=== PATIENT | female | born 1995 | race Caucasian/White ===

== ENCOUNTER 2017-05-14 05:24 | Emergency (ER) | payer SELFPAY ==
[2017-05-14 06:18] VITALS: BP 104/63
[2017-05-14 07:50] LABS: Bacteria,Urine 2+ /HPF (Negative); Bilirubin,Urine NEG (Negative); Blood,Urine LG (Negative); Calcium Oxalate Crystals,Urine 3+; Color,Urine Yellow (Yellow); Mucus,Urine FEW /HPF; Nitrite,Urine NEG (Negative); Urobilinogen,Urine < 2.0 mg/dL (<2.0)
[2017-05-14 07:57] LABS: RBC,Urine > 182.0 /HPF (0.0-6.0); WBC,Urine > 182.0 /HPF (0.0-6.0)
== END 2017-05-14 12:25 | disposition left against medical advice (07) ==
LOC: ED 05:24
DX: R39.9 Unspecified symptoms and signs involving the genitourinary system (principal); Z53.21 Procedure and treatment not carried out due to patient leaving prior to being seen by health care provider
CPT/HCPCS: 81001

== ENCOUNTER 2018-06-11 15:36 | Inpatient (IN) | payer OTHER ==
[2018-06-11] MEDS ORDERED: LACTATED RINGERS 1,000 ML ONE (16:35)
[2018-06-11] MEDS ORDERED: MINERAL OIL PO PRN (16:47)
[2018-06-11] MEDS ORDERED: BRETHINE SUB-Q PRN (16:47)
[2018-06-11] MEDS ORDERED: STADOL IV PRN (16:47)
[2018-06-11] MEDS ORDERED: BRETHINE IVP PRN (16:47)
--- NOTE | 2018-06-11 16:47 | History and Physical Report ---
History of Present Illness Date of examination: 06/11/18 Date of admission: 06/11/18 15:36 Chief complaint: Leaking fluid, contractions History of present illness: 22yo G 1 P 0 0 0 0 at 38 weeks 3 days here with c/o leaking fluid since 13:58 and UCs since 14:30. She reports positive FMs. She is a [facility] patient. records are available and reviewed. Her course has been unremarkable. She reports anemia and currently on iron therapy. Labs: O pos, Antibody Screen neg, RI, HIV NR, RPR NR, Hep C NR, HBsAg NR, GC/CT/TRICH neg Past History Past Medical History: no pertinent history Past Surgical History: no surgical history Family/Genetic History: none Social history: single, lives with family, full code. denies: smoking, alcohol abuse, prescription drug abuse, IV drug use - Obstetrical History Expected Date of Delivery: 06/22/18 Actual Gestation: 38 Week(s) 3 Day(s) : 1 Para: 0 Hx # Term Pregnancies: 0 Number of Pregnancies: 0 Spontaneous Abortions: 0 Induced : 0 Number of Living Children: 0 Medications and Allergies Allergies Allergy/AdvReac Type Severity Reaction Status Date / Time Penicillins Allergy Rash Verified 06/11/18 16:00 Home Medications Medication Instructions Recorded Confirmed Last Taken Type No Known Home Medications [No 07/11/13 07/11/13 Unknown History Reported Home Medications] Review of Systems All systems: negative - Vital Signs Vital signs: Vital Signs Temp Resp 98.7 F 18 06/11/18 16:00 06/11/18 16:00 Temp Pulse Resp BP Pulse Ox 98.7 F 18 06/11/18 16:00 06/11/18 16:00 - Obstetrical FHR: category 2 FHR comments: baseline 150, moderate variability, + accels, variable decel Uterine Contraction Monitor Mode: External Cervical Dilatation: 1.5 (per RN) Cervical Effacement Percentage: 60 (per RN) station: -3 (per RN) Uterine Contraction Pattern: Regular Results All other labs normal. Assessment and Plan - Patient Problems (1) 38 weeks gestation of Current Visit: Yes Status: Acute (2) Spontaneous rupture of amniotic membranes Current Visit: Yes Status: Acute Plan to address problem: Admit to L&D with routine labor orders Start low-dose Pitocin for cervical ripening Anticipate vaginal delivery (3) GBS (group B Streptococcus carrier), +RV culture, currently Current Visit: Yes Status: Acute Plan to address problem: Start Clindamycin per protocol
[2018-06-11] MEDS ORDERED: PITOCin/NS 30 UNIT/500ML 30 UNITS/500 ML BAG IV SCH (17:00)
[2018-06-11] MEDS ORDERED: PITOCin/NS 20 UNIT/1000ML DRIP 20 UNITS/1,000 ML BAG IV SCH (17:00)
[2018-06-11 17:38] LABS: Hematocrit 52.2 % (30.3-42.9); Hemoglobin 17.6 gm/dl (10.1-14.3); Mean Corpuscular HGB Conc 34 % (30-34); Mean Corpuscular Volume 92 fl (79-97); Red Blood Count 5.66 M/mm3 (3.65-5.03); Red Cell Distribution Width 14.1 % (13.2-15.2)
[2018-06-11] MEDS ORDERED: CLEOCIN 900 MG/50 mL 900 MG/50 ML BAG IV SCH (18:00)
[2018-06-11] MEDS ORDERED: XYLOCAINE 2% INFILTRATI ONE (18:00)
[2018-06-11 18:03] LABS: Platelet Count 152 K/mm3 (140-440)
[2018-06-11] MEDS: SUBLIMAZE IV PRN ×2 (18:37→20:52)
[2018-06-11] MEDS ORDERED: NARCAN 2 MG/2 ML IV PRN (19:10)
--- NOTE | 2018-06-11 19:48 | Ultrasound Report ---
PROCEDURE: US OB LIMITED HISTORY: presentation and location of placenta FINDINGS: Real-time ultrasound of the pelvis was performed with attention to the gravid uterus. There is an ant erior grade 1 placenta. cardiac activity is present at 150 bpm. The fetus lies in cephalic lie. IMPRESSION: The fetus lies in cephalic lie Anterior placenta This document is electronically signed by Lorenzo Cruz MD., June 11 2018 07:45:13 PM ET
[2018-06-11] MEDS ORDERED: VANCOMYCIN/NS 1 GM/250 ML 1 GM/250 ML BAG IV SCH (20:00)
[2018-06-11] MEDS ORDERED: fentaNYL-BUPIV 2 MCG/ML-0.125% 200 MCG/100 ML BAG EPIDURAL SCH (20:00)
--- NOTE | 2018-06-11 20:58 | Anesthesia Day of Surgery ---
Anesthesia Day of Surgery - Day of Surgery Patient Examined: Yes Patient H&P Reviewed: Yes Patient is NPO: Yes Beta Blockers: No Cardiac Clearance: No Pulmonary Clearance: No Yariel's Test: N/A
--- NOTE | 2018-06-11 20:58 | Anesthesia Consultation ---
Anesthesia Consult and Med Hx - Airway Anesthetic Teeth Evaluation: Good ROM Head & Neck: Adequate Mental/Hyoid Distance: Adequate Mallampati Class: Class II Intubation Access Assessment: Good - Pulmonary Exam CTA: Yes - Cardiac Exam Cardiac Exam: RRR - Pre-Operative Health Status ASA Pre-Surgery Classification: ASA2 Proposed Anesthetic Plan: Epidural - Pulmonary Hx Smoking: No Hx Asthma: No Hx Respiratory Symptoms: No SOB: No COPD: No Home Oxygen Therapy: No Hx Pneumonia: No Hx Sleep Apnea: No - Cardiovascular System Hx Hypertension: No Hx Coronary Artery Disease: No Hx Heart Attack/AMI: No Hx Angina: No Hx Percutaneous Transluminal Coronary Angioplasty (PTCA): No Hx Cardia Arrhythmia: No Hx Pacemaker: No Hx Internal Defibrillator: No Hx Valvular Heart Disease: No Hx Heart Murmur: No Hx Peripheral Vascular Disease: No - Central Nervous System Hx Neuromuscular Disorder: No Hx Seizures: No CVA: No Hx Back Pain: No Hx Psychiatric Problems: No - Gastrointestinal Hx Ulcer: No Hx Gastroesophageal Reflux Disease: No - Endocrine Hx Renal Disease: No Hx End Stage Renal Disease: No Hx Cirrhosis: No Hx Liver Disease: No Hx Insulin Dependent Diabetes: No Hx Non-Insulin Dependent Diabetes: No Hx Thyroid Disease: No Hx Hypothyroidism: No Hx Hyperthyroidism: No - Hematic Hx Anemia: Yes (during ) Hx Sickle Cell Disease: No - Other Systems Hx Alcohol Use: Yes (prior to ) Hx Substance Use: No Hx Cancer: No Hx Obesity: No
[2018-06-11] MEDS ORDERED: MARCAINE 0.25% INFILTRATI ONE (21:10)
[2018-06-11] MEDS ORDERED: NACL 0.9% 1000 ML 1,000 ML VG SCH (23:45)
[2018-06-11] MEDS ORDERED: TYLENOL PO ONE (23:46)
--- NOTE | 2018-06-12 00:04 | Event Note ---
Date: 06/11/18 FHR 150 with moderate variability and brief variable decelerations with rapid return to baseline. SVE 2.5/90/-2; IUPC inserted without difficulty to allow for amnioinfusion. Temp. 99.6. Tylenol and amnioinfusion ordered. Patient is already receiving Vancomycin for GBS prophylaxis. Will also order Gentamicin for patient. Consulted with Dr. Strauss re: maternal tachycardia, temp. elevation, FHR tracing, and interventions ordered. No new orders received. Will observe patient closely.
[2018-06-12] MEDS ORDERED: BENADRYL IV ONE (00:31)
[2018-06-12] MEDS ORDERED: GENTAMICIN/NS 100 MG/100 ML 100 MG/100 ML BAG IV SCH (01:00)
--- NOTE | 2018-06-12 01:30 | Event Note ---
Date: 06/12/18 Temp 102.4. Maternal and tachycardia noted. Tylenol was given over an hour ago. Patient is receiving IV antibiotics. Consulted with Dr. Strauss re: maternal and tachycardia and maternal fever. Dr. Strauss states she is coming in to perform a section. Discussed Dr. Strauss's recommendation with patient and family.
[2018-06-12] MEDS ORDERED: BICITRA PO ONE (01:31)
[2018-06-12] MEDS ORDERED: PEPCID IV ONE (01:31)
[2018-06-12] MEDS ORDERED: REGLAN IV ONE (01:31)
[2018-06-12] MEDS ORDERED: SUBLIMAZE ONE (01:45)
[2018-06-12 01:55] LABS: Basophils # (Auto) 0.1 K/mm3 (0.0-0.1); Basophils % (Auto) 0.7 % (0.0-1.8); Eosinophils % (Auto) 0.1 % (0.0-4.3); Hematocrit 33.3 % (30.3-42.9); Hemoglobin 11.3 gm/dl (10.1-14.3); Lymphocytes # (Auto) 0.9 K/mm3 (1.2-5.4); Lymphocytes % (Auto) 8.2 % (13.4-35.0); Mean Corpuscular HGB Conc 34 % (30-34); Mean Corpuscular Volume 92 fl (79-97); Monocytes # (Auto) 0.7 K/mm3 (0.0-0.8); Monocytes % (Auto) 6.2 % (0.0-7.3); Platelet Count 224 K/mm3 (140-440); Red Blood Count 3.64 M/mm3 (3.65-5.03); Red Cell Distribution Width 13.6 % (13.2-15.2)
[2018-06-12] MEDS ORDERED: PITOCin/NS 20 UNIT/1000ML DRIP 20 UNITS/1,000 ML BAG IV SCH ×2 (02:00→04:00)
[2018-06-12] MEDS ORDERED: LACTATED RINGERS 1,000 ML IV SCH (02:00)
[2018-06-12] MEDS ORDERED: NACL 0.9% IR ONE (02:29)
[2018-06-12] MEDS ORDERED: WATER FOR IRRIG STERILE IR ONE (02:29)
[2018-06-12] MEDS ORDERED: NEO SYNEPHRINE/NS Syringe(OR USE) IV ONE (02:33)
[2018-06-12] MEDS ORDERED: METHERGINE IM ONE ×2 (02:41→02:43)
[2018-06-12] MEDS ORDERED: LANSINOH TP PRN (03:37)
[2018-06-12] MEDS ORDERED: ANUCORT-HC PR PRN (03:37)
[2018-06-12] MEDS ORDERED: TYLENOL PO PRN (03:37)
[2018-06-12] MEDS ORDERED: TUCKS PAD TP PRN (03:37)
[2018-06-12] MEDS ORDERED: MORPHINE IV PRN ×2 (03:37)
[2018-06-12] MEDS ORDERED: MILK OF MAGNESIA PO PRN (03:37)
[2018-06-12] MEDS ORDERED: ZOFRAN IV PRN (03:37)
[2018-06-12] MEDS ORDERED: NARCAN 0.4 MG/1 ML IV PRN (03:37)
[2018-06-12] MEDS ORDERED: TORADOL IV PRN (03:37)
[2018-06-12] MEDS ORDERED: SENOKOT PO PRN (03:37)
[2018-06-12] MEDS ORDERED: TORADOL ONE (03:43)
--- NOTE | 2018-06-12 03:51 | Post Anesthesia Evaluation ---
- Post Anesthesia Evaluation Patient Participated: Yes Airway Patent: Yes Stable Respiratory Function: Yes Nausea/Vomiting: No Temp > 96.8F: Yes Pain Manageable: Yes Adequeate Hydration: Yes Anesthesia Complications: No Block Receding Appropriately: Yes Patient on Ventilator: No
--- NOTE | 2018-06-12 03:54 | Event Note ---
Date: 06/12/18 Late entry note. I was called top evaluate this patient by screw cutter Adriana. The patient is a 22 year old who was admitted at around 4 PM yesterday after she ruptured her membranes an hour earlier. On admission, she denied any bleeding but reported having irregular contractions. Vitals were stable. Cervix was 1-2 cm dilated. tracing was CAT1. She is GBS positive. She was admitted for labor and SROM. Vancomycin was given for GBS prophylaxis. She progressed to 2-3 cm last night. She developed a fever of 102F and maternal tachycardia. tachycardia started later with FH in the 180-1200's. IV gentamicin was added, she was given tylenol and oxygen. The tracing later showed repetitive late decelerations. Exam: cervix 2-3 cm dilated. I came in to evaluate the patient. She was counselled for delivery via C/section for nonreassuring status. Risks and benefits of the procedure were discussed with her. She gave her informed consent. Anesthesia has been notified. Keep NPO.
--- NOTE | 2018-06-12 03:58 | Operative Report ---
Operative Report Operative Report: Preoperative diagnosis 1. SIUP at 38 weeks and 4 days gestation in active labor. 2. Maternal fever and tachycardia, suspect sepsis. 3. Category 3 tracing. Postoperative diagnosis: 1. SIUP at 38 weeks and 4 days gestation in active labor. 2. Maternal fever and tachycardia, suspect sepsis. 3. Category 3 tracing. 4. Meconium amniotic fluid. Procedure: Primary low-transverse section. Surgeon: Dr. Strauss Fourdrinier Operator: none Anesthesia: epidural. IVF: RL 1.2 liters EBL: 800 cc Urine: 50 cc clear Complications: Intraoperative uterine atony responsive to IV Pitocin and IM methergine. Intraoperative findings: 1. A female found in an TAMARA position, delivered at 2:39 AM, Apgars 8 at 1 minute and 9 at 5 minutes, weight 7 lbs 4 oz. 2. Meconium amniotic fluid. 3. Normal fallopian tubes and ovaries bilaterally. Procedure details: Risks, benefits, and alternatives of the procedure were discussed in detail with the patient which included but not limited to the risk of infection, hemorrhage requiring blood transfusion, injury to the bowel or bladder and blood vessels. The patient expressed understanding, her questions were answered, and she gave informed consent. The patient was taken to the operating room with an IV fluid infusing Ringers lactate. In the operating room, she was placed in a dorsal supine position with a leftward tilt. She was loaded with epidural anesthesia. Rodriguez catheter in Venodyne boots were placed. The abdomen was washed and she was prepared and draped in usual sterile fashion. After confirming adequate epidural anesthesia, the Pfannenstiel skin incision was made in the lower abdomen about 2 cm above the pubic symphysis using the scalpel. This incision was carried down to the underlying fascia using the Bovie. The fascia was opened bilaterally in a curvilinear fashion using the Bovie. 2 straight Kocker clamps were used to grasp the upper edge of the fascia from which the underlying rectus abdominis muscles was dissected off using the Bovie. A similar procedure was done with the lower edge of the fascia to dissect the underlying rectus abdominis muscle. The muscle was bluntly from the midline by pulling. The parietal peritoneum was grasped with 2 hemostat clamps and entered sharply using Metzenbaum scissors. A quick survey of the anatomy revealed a gravid uterus, normal fallopian tubes and ovaries bilaterally. A bladder flap was created. Enrike'O retractor was placed in the incision for proper visualization. A low transverse incision was made in the lower uterine segment using the scalpel and extended bilaterally in a curvilinear fashion using bandage scissors. There was large amount of meconium amniotic fluid. The infant was found in an TAMARA position, the head was delivered atraumatically followed by the delivery of the shoulders and the rest of the body at 2:39 AM. The cord was clamped 2 and cut and the infant was handed off to the waiting manager applied. The was a female, Apgars were 8 at 1 minute and 9 at 5 minutes, weight was 7 pounds and 4 oz. Cord blood was collected. The placenta was delivered manually and it was complete with a three-vessel cord. The uterine cavity was cleaned of clots and debris using dry lap sponges. There was uterine atony responsive to IV pitocin ad IM methergine. The uterine incision was repaired in a running locked fashion using 0 Vicryl sutures. A second layer of imbrication was placed. The gutters were cleaned of clots and debris using dry lap sponges. After confirming adequate hemostasis, the instruments were removed from the abdominal cavity. The rectus muscle was reapproximated in an interrupted fashion using 0 Vicryl sutures. The fascia was closed in a running fashion using 0 Vicryl sutures. The skin was closed with luis. Sterile dressing was placed. The counts of laps, needles, sponges, and instruments were correct 2. The patient tolerated the procedure well, she was taken to the recovery room in a stable condition.
[2018-06-12] MEDS ORDERED: SODIUM CHLORIDE FLUSH SYRINGE 10 ML IV PRN (04:00)
[2018-06-12] MEDS ORDERED: TYLENOL PO ONE (04:10)
[2018-06-12] MEDS: LACTATED RINGERS 1,000 ML IV SCH ×2 (05:19→17:00)
[2018-06-12 06:41] LABS: Hemoglobin 11.3 gm/dl (10.1-14.3)
[2018-06-12] MEDS: PRENATAL VITAMIN PO SCH (09:42)
[2018-06-12] MEDS: FEOSOL PO SCH (09:42)
[2018-06-12] MEDS: GENTAMICIN/NS 100 MG/100 ML 100 MG/100 ML BAG IV SCH ×2 (09:42→17:40)
[2018-06-12] MEDS: VANCOMYCIN/NS 1 GM/250 ML 1 GM/250 ML BAG IV SCH ×2 (10:36→23:36)
[2018-06-12] MEDS: TORADOL IV PRN ×2 (11:01→17:00)
--- NOTE | 2018-06-12 11:50 | XRay Report ---
PROCEDURE: XR CHEST ROUTINE 2V TECHNIQUE: Chest, 2 views HISTORY: fever COMPARISON: None FINDINGS: The heart size is normal. There is no pulmonary vascular congestion seen. Mediastinal contours are normal. Lungs are clear. There is no pleural effusion seen. There is no pneumothorax seen. IMPRESSION: No acute abnormality identified. This document is electronically signed by Venice William MD., June 12 2018 09:52:08 AM ET
[2018-06-12] MEDS: PERCOCET 5/325 PO PRN ×2 (14:25→20:37)
[2018-06-13] MEDS: GENTAMICIN/NS 100 MG/100 ML 100 MG/100 ML BAG IV SCH ×2 (02:08→10:54)
[2018-06-13] MEDS: IBUPROFEN PO PRN ×2 (09:11→16:15)
[2018-06-13] MEDS: PRENATAL VITAMIN PO SCH (09:12)
[2018-06-13] MEDS: FEOSOL PO SCH (09:12)
[2018-06-13] MEDS: PERCOCET 5/325 PO PRN ×2 (09:12→16:15)
[2018-06-13] MEDS: LACTATED RINGERS 1,000 ML IV SCH (09:13)
--- NOTE | 2018-06-13 10:40 | Progress Note ---
Assessment and Plan A: /postop day 1 S/P primary low transverse section. Fever. Weakness and fatigue. Shortness of breath with exertion. On IV antibiotics. P: Consulted with Dr. Haddad re: this patient and above complaints. CXR, CBC ordered. ID consult ordered (Dr. Del Rosario). Subjective - Subjective Date of service: 06/13/18 Principal diagnosis: /postop day 1 S/P primary LTCS Interval history: /postop day 1 S/P primary low transverse section. Patient has a fever this AM (102.9); reports chills and sweating. Reports fatigue, generalized weakness, SOB on exertion. Patient states she has been voiding without difficulty but less than normal for her (has voided 4 times since Rodriguez catheter removed). Passing gas and has had a BM. Ambulated earlier but felt faint so got back into bed. Pt. reports poor appetite but has "nibbled" on her regular diet. Patient denies headache, chest pain, cough, abdominal pain, leg pain, or heavy vaginal bleeding. Patient had a fever during labor and has been receiving IV Vancomycin and Gentamicin. Patient reports: dizzy ambulation, pain well controlled, flatus, bowel movement, no appetite normal, no nauseated : doing well Objective - Vital Signs Latest vital signs: Vital Signs Temp Pulse Resp BP BP Pulse Ox 06/13/18 08:26 102.9 F H 133 H 20 101/44 95 06/13/18 00:00 98.2 F 18 114/64 98 06/12/18 20:37 18 06/12/18 15:48 97.7 F 98 H 18 109/61 96 06/12/18 11:36 97.7 F 101 H 18 107/60 99 Intake and Output 06/12/18 06/13/18 06/13/18 23:59 07:59 15:59 Intake Total 460 1360 600 Output Total 400 700 Balance 60 660 600 Intake: IV 100 1000 GARAMYCIN/NS 100 MG/100 100 ML 100 mg In 100 ml @ 200 mls/hr IV Q8H OCTAVIA Rx#: [id number] Lactated Ringers 1,000 ml 1000 @ 125 mls/hr IV DIRECT OCTAVIA Rx#:[id number] Oral 360 360 Intake, Free Water 600 Output: Urine 400 700 Void 400 700 Other: Total, Intake Amount 360 120 Total, Output Amount 400 300 Voiding Method Toilet # Voids Void 3 1 - Exam Narrative Exam: Urine culture showed no growth after 24 hours. Blood culture results still pending. Cardiovascular: Present: Regular rate, Normal S1, Normal S2 Lungs: Present: Clear to auscultation Abdomen: Present: normal appearance, soft. Absent: distention, tenderness, guarding, rigidity Uterus: Present: normal, firm, tenderness, fundal height below umbilicus Extremities: Present: normal, edema (mild pedal edema bilaterally). Absent: tenderness Incision: Present: normal, dry, intact - Labs Labs: Abnormal lab results 06/13/18 Range/Units 09:32 Vancomycin Trough 4.0 L (5.0-20.0) ug/mL
[2018-06-13 10:57] LABS: Basophils % (Auto) 0.3 % (0.0-1.8); Eosinophils % (Auto) 0.1 % (0.0-4.3); Hematocrit 31.3 % (30.3-42.9); Hemoglobin 10.4 gm/dl (10.1-14.3); Lymphocytes # (Auto) 0.9 K/mm3 (1.2-5.4); Lymphocytes % (Auto) 6.8 % (13.4-35.0); Mean Corpuscular HGB Conc 33 % (30-34); Mean Corpuscular Volume 92 fl (79-97); Monocytes # (Auto) 0.6 K/mm3 (0.0-0.8); Monocytes % (Auto) 4.8 % (0.0-7.3); Platelet Count 208 K/mm3 (140-440); Red Blood Count 3.42 M/mm3 (3.65-5.03)
--- NOTE | 2018-06-13 12:34 | XRay Report ---
PROCEDURE: XR CHEST ROUTINE 2V TECHNIQUE: Chest, PA and lateral HISTORY: shortness of breath COMPARISON: 05/15/2018 FINDINGS: The heart size is normal. There is no pulmonary vascular congestion seen. Mediastinal contours are normal. Lungs are clear. There is no pleural effusion seen. There is no pneumothorax seen. IMPRESSION: No acute abnormality identified. This document is electronically signed by Venice William MD., June 13 2018 12:32:32 PM ET
[2018-06-13] MEDS: VANCOMYCIN/NS 1 GM/250 ML 1 GM/250 ML BAG IV SCH ×2 (12:40→22:02)
--- NOTE | 2018-06-13 16:13 | Consultation ---
History of Present Illness - Reason for Consult Consult date: 06/13/18 fever, SOB Requesting physician: JENNIFER SANTIAGO - History of Present Illness 22 y/o with history of anemia admitted on 06/12/2018 38 weeks 3 days due to leaking fluid and uterine contractions. She reports positive FMs. She is a [facility] patient. course has been unremarkable. Labs: O pos, Antibody Screen neg, RI, HIV NR, RPR NR, Hep C NR, HBsAg N R, GC/CT/TRICH neg. Denies any fever, chills, N/V/D, cough or urinary symptoms before admission. In the ED, temp 98.7, HR 103, R 18, BP 96/52. WBC 6.3. Hg 17. Plat 152. RPR neg. Blood culture 06/12/2018 no growth so far. Urine culture 06/12/2018 neg. CXR no consolidation. Patient was taken to the OR for due to maternal fever and tachycardia. Intra-operative noted uterine atony and meconic amniotic fluid. Review of Systems: General: no fever, chills, nightsweats, unintentional weight change, or change in appetite Cutaneous: no rash, pruritus Head: no headaches or injury Eyes: no changes in vision, eye pain, double vision Ears: no ear pain, ear discharge, ringing or hearing loss Nose: no nose bleeding, stuffiness Mouth & throat: no bleeding gums, no horseness, no dental problems, or swollen glands Neck: no pain, node enlargement/lumps, tyroid enlargement or tenderness Respiratory: no cough, wheezing, sputum, hemoptysis, pleuritic chest pain Cardiovascular: no chest pain, leg edema, cyanosis, BEDOLLA, orthopnea Musculoskeletal: no decreased joint motion, bone or joint pain, joint swelling, muscle aches Gastrointestinal: no nausea, vomiting, hematemesis, diarrhea, constipation, melena, bright red blood in stools, fecal incontinence, jaundice Genitourinary/Reproductive: no frequent urination, dysuria, hematuria, incontinence Neurogical: no seizures, no headaches, no weakness, no paresthesias, no loss of speech or vision; no memory loss, no vertigo, no tremors, no numbness Psychiatric: stable mood; no excessive anxiety, sadness or moodiness Past History Social history: single, lives with family, full code. denies: smoking, alcohol abuse, prescription drug abuse, IV drug use Medications and Allergies Allergies Allergy/AdvReac Type Severity Reaction Status Date / Time Penicillins Allergy Rash Verified 06/11/18 16:00 Home Medications Medication Instructions Recorded Confirmed Last Taken Type No Known Home Medications [No 07/11/13 06/13/18 Unknown History Reported Home Medications] Active Meds: Active Medications Acetaminophen (Tylenol) 650 mg PO Q4H PRN PRN Reason: Fever >100.5/MUELLER Ephedrine Sulfate (Ephedrine Sulfate) 10 mg IV Q2M PRN PRN Reason: Hypotension Ferrous Sulfate (Feosol) 325 mg PO QDAY OCTAVIA Last Admin: 06/13/18 09:12 Dose: 325 mg Documented by: Hydrocortisone Acetate (Anucort-Hc) 25 mg NJ BID PRN PRN Reason: Hemorrhoids Lactated Ringer's (Lactated Ringers) 1,000 mls @ 125 mls/hr IV DIRECT OCTAVIA Last Admin: 06/13/18 09:13 Dose: 125 mls/hr Documented by: Fentanyl/Bupivacaine/Sodium Chlor (Fentanyl-Bupiv 2 Mcg/Ml-0.125%) 200 mcg in 100 mls @ 12 mls/hr EPIDURAL TITR OCTAVIA; Protocol Last Admin: 06/11/18 21:39 Dose: 12 mls/hr Documented by: Sodium Chloride (Nacl 0.9% 1000 Ml) 1,000 mls @ 0 mls/hr VG DIRECT OCTAVIA Last Admin: 06/11/18 23:59 Dose: 75 mls/hr Documented by: Gentamicin Sulfate/Sodium Chloride (Garamycin/Ns 100 Mg/100 Ml) 100 mg in 100 mls @ 200 mls/hr IV Q8H OCTAVIA Last Admin: 06/13/18 10:54 Dose: 200 mls/hr Documented by: Oxytocin/Sodium Chloride (Pitocin/Ns 20 Unit/1000ml Drip) 20 units in 1,000 mls @ 250 mls/hr IV DIRECT OCTAVIA Vancomycin HCl (Vancomycin/Ns 1 Gm/250 Ml) 1 gm in 250 mls @ 166.667 mls/hr IV Q8HR OCTAVIA; Protocol Ibuprofen (Motrin) 800 mg PO Q6H PRN PRN Reason: Pain, Mild (1-3) Last Admin: 06/13/18 09:11 Dose: 800 mg Documented by: Ketorolac Tromethamine (Toradol) 15 mg IV Q6H PRN PRN Reason: Pain, Mild (1-3) Stop: 06/17/18 03:36 Ketorolac Tromethamine (Toradol) 30 mg IV Q6H PRN PRN Reason: Pain, Moderate (4-6) Stop: 06/17/18 03:36 Last Admin: 06/12/18 17:00 Dose: 30 mg Documented by: Magnesium Hydroxide (Milk Of Magnesia) 30 ml PO QHS PRN PRN Reason: Constip Unrelieved By [place] Morphine Sulfate (Morphine) 2 mg IV Q4H PRN PRN Reason: Pain, Moderate (4-6) Morphine Sulfate (Morphine) 4 mg IV Q4H PRN PRN Reason: Pain , Severe (7-10) Last Admin: 06/12/18 05:31 Dose: 4 mg Documented by: Multi-Ingredient Ointment (Lansinoh) 1 applic TP PRN PRN PRN Reason: dryness/cracking Multivitamins/Iron/Calcium ( Vitamin) 1 each PO QDAY OCTAVIA Last Admin: 06/13/18 09:12 Dose: 1 each Documented by: Naloxone HCl (Narcan 0.4 Mg/1 Ml) 0.1 mg IV Q2MIN PRN PRN Reason: Res Rate </= 8 or 02 SAT < 92% Ondansetron HCl (Zofran) 4 mg IV Q8H PRN PRN Reason: Nausea And Vomiting Oxycodone/Acetaminophen (Percocet 5/325) 1 tab PO Q6H PRN PRN Reason: Pain, Moderate (4-6) Last Admin: 06/13/18 09:12 Dose: 1 tab Documented by: Deyanira (Senokot) 17.2 mg PO QHS PRN PRN Reason: Constipation Sodium Chloride (Sodium Chloride Flush Syringe 10 Ml) 10 ml IV PRN PRN PRN Reason: LINE FLUSH Terbutaline Sulfate (Brethine) 0.25 mg SUB-Q ONCE PRN PRN Reason: Hyperstimulation/Hypertonicity Terbutaline Sulfate (Brethine) 0.25 mg IVP ONCE PRN PRN Reason: Hyperstimulation/Hypertonicity Witch Aydee/Glycerin (Tucks Pad) 1 each TP PRN PRN PRN Reason: Hemorrhoids/cleansing/soothing Physical Examination - Physical Exam Narrative exam: General appearance: Alert in NAD, conversant Eyes: anicteric sclerae, moist conjunctivae; no lid-lag; PERRLA HENT: Atraumatic; oropharynx clear with moist mucous membranes and no mucosal ulcerations/no oral thrush; normal hard and soft palate. Normal external ears. Neck: Trachea midline; supple, no thyromegaly or lymphadenopathy Lungs: CTA, with normal respiratory effort and no intercostal retractions CV: RRR, no murmurs Abdomen: Soft, mild tenderness, SP wound with luis no erythema, no drainage Extremities: No peripheral edema or extremity lymphadenopathy Skin: Normal temperature, turgor and texture; no rash, ulcers or subcutaneous nodules Psych: Appropriate affect, alert and oriented to person, place and time. Neuro: alert and oriented x 3. Moving all extermities - Constitutional Vitals: Vital Signs Temp Pulse Resp BP Pulse Ox 98.1 F 102 H 18 97/59 94 06/13/18 12:20 06/13/18 12:20 06/13/18 12:20 06/13/18 12:20 06/13/18 12:20 Temperature -Last 24 Hours Temperature 98.1 F Temperature 98.1 F Temperature 99.1 F Temperature 102.9 F Temperature 98.2 F Results - Labs CBC & Chem 7: 06/13/18 10:37 Labs: Abnormal lab results 06/13/18 06/13/18 Range/Units 09:32 10:37 WBC 12.8 H (4.5-11.0) K/mm3 RBC 3.42 L (3.65-5.03) M/mm3 Lymph % (Auto) 6.8 L (13.4-35.0) % Lymph # 0.9 L (1.2-5.4) K/mm3 Seg Neutrophils % 88.0 H (40.0-70.0) % Seg Neutrophils # 11.3 H (1.8-7.7) K/mm3 Vancomycin Trough 4.0 L (5.0-20.0) ug/mL Assessment and Plan Cultures: Blood culture 06/12/2018 no growth so far Urine culture 06/12/2018 neg Assessment: 22 y/o with history of anemia admitted on 06/12/2018 with 38 weeks 3 days due to leaking fluid and uterine contractions. Patient was taken to the OR for on 06/12/2018 due to maternal fever and tachycardia. Intra-operative noted uterine atony and meconic amniotic fluid: 1) SIRS versus Sepsis: Not present on admission, manifested by fever, tachycardia, leukocytosis. Etiology unclear. DDx intra-amniotic infection, UTI, pneumonia/influenza, anesthesia. - Blood culture 06/12/2018 no growth so far. - Urine culture 06/12/2018 neg. - CXR no consolidation. - UA was not sent 2) Penicillin allergy Recommendations: - f/u blood cultures - obtain UA stat - obtain influenza rapid antigen and PCR - check CRP - repeat CXR in 48h - follow-up blood cultures, urine culture - stop gentamicin - start aztreonam 1 gm IV q8 hour, clindamycin and vancomcyin for now to cover empirically chorioamnionitis, pneumonia and UTI - start tamiflu until influenza is r/o - check MRSA PCR Will follow. Afsaneh Low MD Infectious Diseases [employer] [facility], [place], [facility] M [phone] O [phone]
[2018-06-13] MEDS: CLEOCIN 600 MG/50 mL 600 MG/50 ML BAG IV SCH (20:24)
[2018-06-13] MEDS: AZACTAM/NS 1 GM/50 ML 1 GM/50 ML VIAL IV SCH (21:02)
[2018-06-13] MEDS: TAMIFLU PO SCH (21:48)
[2018-06-13 22:10] LABS: Bacteria,Urine 3+ /HPF (Negative); Bilirubin,Urine NEG (Negative); Blood,Urine LG (Negative); Mucus,Urine FEW /HPF
[2018-06-13 22:13] LABS: Color,Urine Yellow (Yellow); RBC,Urine > 182.0 /HPF (0.0-6.0); WBC,Urine > 182.0 /HPF (0.0-6.0)
[2018-06-14] MEDS: PERCOCET 5/325 PO PRN ×3 (01:13→17:13)
[2018-06-14] MEDS: IBUPROFEN PO PRN ×3 (01:13→17:14)
[2018-06-14] MEDS: CLEOCIN 600 MG/50 mL 600 MG/50 ML BAG IV SCH ×3 (04:11→21:08)
[2018-06-14] MEDS: AZACTAM/NS 1 GM/50 ML 1 GM/50 ML VIAL IV SCH ×2 (05:00→13:14)
[2018-06-14] MEDS: VANCOMYCIN/NS 1 GM/250 ML 1 GM/250 ML BAG IV SCH ×2 (06:01→14:17)
--- NOTE | 2018-06-14 08:50 | Progress Note ---
Assessment and Plan - Patient Problems (1) Status post Onset Date: 06/14/18 Current Visit: Yes Status: Resolved Plan to address problem: A: S/P C Section - POD #2 Doing well Suspected chorio - improved on Triple antibiotics per ID P: Continue present management Appreciate ID input (2) Chorioamnionitis Onset Date: 06/14/18 Current Visit: Yes Status: Acute Qualifiers: Fetus number: single or unspecified fetus Trimester: third trimester Qualified Code(s): O41.1230 - Chorioamnionitis, third trimester, not applicable or unspecified Subjective - Subjective Date of service: 06/14/18 Principal diagnosis: /postop day #2; S/P primary LTCS Interval history: Pt is feeling well without complaints. She is tolerating a reg diet without nausea or vomiting, ambulating and voiding without difficulty. Denies further fever and chills. Patient reports: appetite normal, voiding normally, pain well controlled, flatus, ambulating normally, no dizzy ambulation, no nauseated [place]: doing well, bottle feeding Objective - Vital Signs Latest vital signs: Vital Signs Temp Pulse Resp BP BP Pulse Ox 06/14/18 01:13 20 06/14/18 00:00 98.0 F 101 H 18 113/64 98 06/13/18 16:20 97.5 F L 105 H 18 104/64 96 06/13/18 12:20 98.1 F 102 H 18 97/59 94 06/13/18 12:07 98.1 F 06/13/18 11:01 99.1 F Intake and Output 06/13/18 06/14/18 06/14/18 22:59 06:59 14:59 Intake Total 940 250 Balance 940 250 Intake: IV 100 250 AZACTAM/NS 1 GM/50 ML 1 50 gm In 50 ml @ 50 mls/hr IV Q8H [facility] Rx#:[id number] CLEOCIN 600 MG/50 mL 600 50 mg In 50 ml @ 100 mls/hr IV Q8H [facility] Rx#:[id number] VANCOMYCIN/NS 1 GM/250 ML 250 1 gm In 250 ml @ 166.667 mls/hr IV Q8HR [facility] Rx#: [id number] Oral 600 Intake, Free Water 240 Other: Total, Intake Amount 240 # Voids Void 1 1 - Exam Abdomen: Present: normal appearance, soft Uterus: Present: normal, firm, fundal height below umbilicus Extremities: Present: normal Incision: Present: normal, dry, intact - Labs Labs: Abnormal lab results 06/13/18 06/13/18 06/13/18 Range/Units 09:32 10:37 18:41 WBC 12.8 H (4.5-11.0) K/mm3 RBC 3.42 L (3.65-5.03) M/mm3 Lymph % (Auto) 6.8 L (13.4-35.0) % Lymph # 0.9 L (1.2-5.4) K/mm3 Seg Neutrophils % 88.0 H (40.0-70.0) % Seg Neutrophils # 11.3 H (1.8-7.7) K/mm3 C-Reactive Protein 22.00 H (0.00-1.30) mg/dL Urine WBC (Auto) (0.0-6.0) /HPF U Epithel Cells (Auto) (0-13.0) /HPF Vancomycin Trough 4.0 L (5.0-20.0) ug/mL 06/13/18 Range/Units 21:45 WBC (4.5-11.0) K/mm3 RBC (3.65-5.03) M/mm3 Lymph % (Auto) (13.4-35.0) % Lymph # (1.2-5.4) K/mm3 Seg Neutrophils % (40.0-70.0) % Seg Neutrophils # (1.8-7.7) K/mm3 C-Reactive Protein (0.00-1.30) mg/dL Urine WBC (Auto) > 182.0 H (0.0-6.0) /HPF U Epithel Cells (Auto) 14.0 H (0-13.0) /HPF Vancomycin Trough (5.0-20.0) ug/mL
[2018-06-14] MEDS: FEOSOL PO SCH (09:59)
[2018-06-14] MEDS: TAMIFLU PO SCH (09:59)
[2018-06-14] MEDS: PRENATAL VITAMIN PO SCH (10:00)
--- NOTE | 2018-06-14 11:48 | Progress Note ---
Assessment and Plan Cultures: Blood culture 06/12/2018 no growth so far Urine culture 06/12/2018 neg Assessment: 22 y/o with history of anemia admitted on 06/12/2018 with 38 weeks 3 days due to leaking fluid and uterine contractions. Patient was taken to the OR for on 06/12/2018 due to maternal fever and tachycardia. Intra-operative noted uterine atony and meconic amniotic fluid: 1) SIRS versus Sepsis: Not present on admission, fever resolved for 24h. Etiology unclear. DDx intra-amniotic infection, UTI, /influenza, anesthesia. - Blood culture 06/12/2018 no growth so far. - CXR no consolidation. - UA 182 wbc/large LE/Urine culture 06/12/2018 neg. - CRP 22 2) Penicillin allergy: remote Recommendations: - f/u blood cultures - obtain influenza rapid antigen and PCR - pending - check MRSA PCR - pending - repeat CXR tomorrow - continue aztreonam 1 gm IV q8 hour, clindamycin and vancomcyin for now to cover empirically chorioamnionitis and UTI - continue tamiflu until influenza is r/o Will follow. Afsaneh Low MD Infectious Diseases [employer] [facility] M [phone] O [phone] Subjective Date of service: 06/14/18 Principal diagnosis: /postop day #2; S/P primary LTCS Interval history: No fever for 24h. Feels better. Denies SOB, cough, N/V/D. Mild vaginal bleeding. Review of Systems: General: no fever, chills, nightsweats, unintentional weight change, or change in appetite Cutaneous: no rash, pruritus Respiratory: no cough, wheezing, sputum, hemoptysis, pleuritic chest pain Gastrointestinal: no nausea, vomiting, diarrhea Objective - Exam Narrative Exam: General appearance: Alert in NAD, conversant Eyes: anicteric sclerae, moist conjunctivae; no lid-lag; PERRLA HENT: Atraumatic; oropharynx clear with moist mucous membranes and no mucosal ulcerations/no oral thrush; normal hard and soft palate. Normal external ears. Neck: Trachea midline; supple, no thyromegaly or lymphadenopathy Lungs: CTA, with normal respiratory effort and no intercostal retractions CV: RRR, no murmurs Abdomen: Soft, mild tenderness, wound with luis no erythema, no drainage Extremities: No peripheral edema or extremity lymphadenopathy Skin: Normal temperature, turgor and texture; no rash, ulcers or subcutaneous nodules Psych: Appropriate affect, alert and oriented to person, place and time. Neuro: alert and oriented x 3. Moving all extermities - Constitutional Vitals: Vital Signs Temp Pulse Resp BP Pulse Ox 98.1 F 97 H 16 94/55 94 06/14/18 07:57 06/14/18 07:57 06/14/18 07:57 06/14/18 07:57 06/14/18 07:57 Temperature -Last 24 Hours Temperature 98.1 F Temperature 98.0 F Temperature 97.5 F Temperature 98.1 F Temperature 98.1 F - Labs CBC & Chem 7: 06/13/18 10:37 Labs: Abnormal lab results 06/13/18 06/13/18 Range/Units 18:41 21:45 C-Reactive Protein 22.00 H (0.00-1.30) mg/dL Urine WBC (Auto) > 182.0 H (0.0-6.0) /HPF U Epithel Cells (Auto) 14.0 H (0-13.0) /HPF
[2018-06-15] MEDS: IBUPROFEN PO PRN ×2 (03:27→12:24)
[2018-06-15] MEDS: PERCOCET 5/325 PO PRN ×2 (03:28→12:23)
[2018-06-15 06:55] LABS: Hematocrit 29.4 % (30.3-42.9); Mean Corpuscular HGB Conc 34 % (30-34); Mean Corpuscular Volume 91 fl (79-97); Platelet Count 231 K/mm3 (140-440); Red Blood Count 3.21 M/mm3 (3.65-5.03); Red Cell Distribution Width 14.1 % (13.2-15.2)
--- NOTE | 2018-06-15 09:08 | Progress Note ---
Assessment and Plan - Patient Problems (1) Status post Onset Date: 06/14/18 Current Visit: Yes Status: Resolved Plan to address problem: A: S/P C Section - POD #3 Doing well Suspected chorio - resolved on Triple antibiotics per ID P: May go home today Cleared by ID for discharge to home today. (2) Chorioamnionitis Onset Date: 06/14/18 Current Visit: Yes Status: Resolved Qualifiers: Fetus number: single or unspecified fetus Trimester: third trimester Qualified Code(s): O41.1230 - Chorioamnionitis, third trimester, not applicable or unspecified Subjective - Subjective Date of service: 06/15/18 Principal diagnosis: /postop day #3; S/P primary LTCS Interval history: Pt is feeling well without complaints. She is tolerating a reg diet without nausea or vomiting, ambulating and voiding without difficulty. Denies further fever and chills. Patient reports: appetite normal, voiding normally, pain well controlled, flatus, ambulating normally, no dizzy ambulation, no nauseated : doing well, bottle feeding Objective - Vital Signs Latest vital signs: Vital Signs Temp Pulse Resp BP BP Pulse Ox 06/15/18 08:20 98.6 F 104 H 20 89/44 94 06/15/18 03:28 18 06/15/18 03:27 18 06/15/18 00:40 98.6 F 109 H 18 95/52 98 06/14/18 16:20 97.5 F L 107 H 20 101/62 95 Intake and Output 06/14/18 06/15/18 06/15/18 22:59 06:59 14:59 Intake Total 240 440 Balance 240 440 Intake: Oral 240 200 Intake, Free Water 240 Other: Total, Intake Amount 240 200 # Voids Void 1 1 # Bowel Movements 1 - Exam Breasts: Present: deferred Cardiovascular: Present: Regular rate Lungs: Present: Clear to auscultation Abdomen: Present: normal appearance, soft Uterus: Present: normal, firm, fundal height below umbilicus Extremities: Present: normal Incision: Present: normal, dry, intact - Labs Labs: Abnormal lab results 06/15/18 Range/Units 05:56 RBC 3.21 L (3.65-5.03) M/mm3 Hgb 10.0 L (10.1-14.3) gm/dl Hct 29.4 L (30.3-42.9) % Laboratory Results - last 24 hr 06/13/18 06/13/18 06/15/18 10:45 Unknown 05:56 WBC 8.1 RBC 3.21 L Hgb 10.0 L Hct 29.4 L MCV 91 MCH 31 MCHC 34 RDW 14.1 Plt Count 231 Influenza A (Rapid) Negative Influenza A (RT-PCR) Negative Influenza B (Rapid) Negative Influenza B (RT-PCR) Negative Microbiology 06/12/18 06:00 Peripheral/Venous Blood Culture - Preliminary NO GROWTH AFTER 48 HOURS 06/12/18 06:10 Peripheral/Venous Blood Culture - Preliminary NO GROWTH AFTER 48 HOURS 06/12/18 04:19 Urine,Catheterized - Indwelling Catheter Urine Culture - Final NO GROWTH AFTER 48 HOURS
[2018-06-15 09:27] LABS: Basophils % (Manual) 0 % (0.0-1.8); Total Cells Counted 100
[2018-06-15 09:28] LABS: Anisocytosis 1+; Ovalocytes Rare; Platelet Estimate Consistent w Auto; Poikilocytosis 1+
--- NOTE | 2018-06-15 09:37 | Progress Note ---
Assessment and Plan Cultures: Blood culture 06/12/2018 no growth so far Urine culture 06/12/2018 neg Assessment: 22 y/o with history of anemia admitted on 06/12/2018 with 38 weeks 3 days due to leaking fluid and uterine contractions. Patient was taken to the OR for on 06/12/2018 due to maternal fever and tachycardia. Intra-operative noted uterine atony and meconic amniotic fluid: 1) SIRS versus Sepsis: Not present on admission, fever resolved for 36h. Etiology unclear. DDx intra-amniotic infection, UTI, anesthetic reaction. - Blood culture 06/12/2018 no growth so far. - CXR no consolidation. - UA 182 wbc/large LE/Urine culture 06/12/2018 neg. - CRP 22 - Influenza rapid and PCR both negative 2) Penicillin allergy: remote Recommendations: - continue aztreonam 1 gm IV q8 hour, clindamycin and vancomcyin for now to cover empirically chorioamnionitis and UTI - tamiflu stopped, influenza was ruled out - ok to d/c from ID stand point on bactrim DS 1 tab BID and clindamycin 300 mg PO TID total 7 days until 06/19/2018 Will follow. Afsaneh Low MD Infectious Diseases [employer] [facility] [place] M [phone] O [phone] Subjective Date of service: 06/15/18 Principal diagnosis: /postop day #3; S/P primary LTCS Interval history: No fever for 36h. Feels better. Denies SOB, cough, N/V/D. Review of Systems: General: no fever, chills, nightsweats, unintentional weight change, or change in appetite Cutaneous: no rash, pruritus Respiratory: no cough, wheezing, sputum, hemoptysis, pleuritic chest pain Gastrointestinal: no nausea, vomiting, diarrhea Objective - Exam Narrative Exam: General appearance: Alert in NAD, conversant Eyes: anicteric sclerae, moist conjunctivae; no lid-lag; PERRLA HENT: Atraumatic; oropharynx clear with moist mucous membranes and no mucosal ulcerations/no oral thrush; normal hard and soft palate. Normal external ears. Neck: Trachea midline; supple, no thyromegaly or lymphadenopathy Lungs: CTA, with normal respiratory effort and no intercostal retractions CV: RRR, no murmurs Abdomen: Soft, mild tenderness, wound with luis no erythema, no drainage Extremities: No peripheral edema or extremity lymphadenopathy Skin: Normal temperature, turgor and texture; no rash, ulcers or subcutaneous nodules Psych: Appropriate affect, alert and oriented to person, place and time. Neuro: alert and oriented x 3. Moving all extermities - Constitutional Vitals: Vital Signs Temp Pulse Resp BP Pulse Ox 98.6 F 104 H 20 89/44 94 06/15/18 08:20 06/15/18 08:20 06/15/18 08:20 06/15/18 08:20 06/15/18 08:20 Temperature -Last 24 Hours Temperature 98.6 F Temperature 98.6 F Temperature 97.5 F - Labs CBC & Chem 7: 06/15/18 05:56 Labs: Abnormal lab results 06/15/18 Range/Units 05:56 RBC 3.21 L (3.65-5.03) M/mm3 Hgb 10.0 L (10.1-14.3) gm/dl Hct 29.4 L (30.3-42.9) % Seg Neuts % (Manual) 79.0 H (40.0-70.0) % Lymphocytes # (Manual) 1.1 L (1.2-5.4) K/mm3
[2018-06-15] MEDS: PRENATAL VITAMIN PO SCH (12:22)
[2018-06-15] MEDS: FEOSOL PO SCH (12:25)
--- NOTE | 2018-06-15 14:18 | Discharge Summary ---
Providers - Providers Date of Admission: 06/11/18 15:36 Date of discharge: 06/15/18 Attending physician: NADEGE REID 06/13/18 10:34 Consult to Physician [CONS] Stat Comment: Consulting Provider: SAL LEE Physician Instructions: Reason For Exam: fever, fatigue, weakness, SOB, Primary care physician: NADEGE REID Hospitalization Reason for admission: active labor, rupture of membranes, IUP at term Delivery: Procedure: section, primary low transverse Episiotomy: none Laceration: none Incision: normal, dry, intact (with luis) Other procedures: none complications: pelvic infection Discharge diagnosis: IUP at term delivered baby: female Hospital course: Pt is a 22 y/o BF EGA 38 3/7 weeks with history of anemia admitted on 06/12/2018 due to leaking fluid and uterine contractions. Patient was taken to the OR for on 06/12/2018 due to maternal fever and tachycardia. Intra- operative noted uterine atony and meconic amniotic fluid: She was started on Triple antibiotics for suspected chorioamnionitis versus SIRS versus Sepsis: Her fever resolved for 36h. Etiology unclear. DDx intra- amniotic infection, UTI, anesthetic reaction. - Blood culture 06/12/2018 no growth x 48ghrs. - CXR no consolidation. - UA 182 wbc/large LE/Urine culture 06/12/2018 neg. - CRP 22 - Influenza rapid and PCR both negative By POD #3 she was tolerating a reg diet without nausea or vomiting, ambulating and voiding without difficulty. Her Triple antibiotics were discontinued and she was switched to Bactrim DS BID and Clindamycin 300mg BID per ID. She will therefore be discharged to home today in stable condition. Her luis will be removed in the office in 1 week. Condition at discharge: Good Disposition: DC-01 TO HOME OR SELFCARE - Discharge Diagnoses (1) Status post Status: Resolved (2) Chorioamnionitis Status: Resolved Qualifiers: Fetus number: single or unspecified fetus Trimester: third trimester Qualified Code(s): O41.1230 - Chorioamnionitis, third trimester, not applicable or unspecified Plan - Discharge Medications Prescriptions: Clindamycin [Clindamycin CAP] 300 mg PO Q8H #21 capsule Ferrous Sulfate [Feosol 325 MG tab] 325 mg PO QDAY #60 tablet Ibuprofen [Motrin 800 MG tab] 800 mg PO Q6H PRN #30 tablet PRN Reason: Pain, Mild (1-3) oxyCODONE /ACETAMINOPHEN [Percocet 5/325 mg] 1 tab PO Q6H PRN #30 tablet PRN Reason: Pain, Moderate (4-6) Vit-Fe Fumar-FA [ Vitamin] 1 each PO QDAY #30 tablet Sulfamethoxazole/Trimethoprim [Bactrim DS TAB] 1 each PO BID #14 tablet - Provider Discharge Summary Activity: routine, no sex for 6 weeks, no heavy lifting 4 weeks, no strenuous exercise Diet: routine Instructions: routine Additional instructions: [] Smoking cessation referral if applicable(refer to patient education folder for contact #) [] Refer to [facility] Booklet Call your doctor immediately for: * Fever > 100.5 * Heavy vaginal bleeding ( >1 pad per hour) * Severe persistent headache * Shortness of breath * Reddened, hot, painful area to leg or breast * Drainage or odor from incision. * Keep incision clean and dry at all times and follow doctor's instructions reg arding bathing/showering Staple removal in 1 week - Follow up plan Follow up: NADEGE REID MD [Primary Care Provider] - 7 Days BRIELLE WYNN CNM [Advanced Practice Nurse] - 7 Days
[2018-06-15 14:41] VITALS: BP 109/69
== END 2018-06-15 17:30 | disposition home or self-care (01) | DRG 765 ==
LOC: LD 15:36 → OB 06-12 05:15
PROVIDERS: ADMIT Obstetrics & Gynecology; ATTEND Obstetrics & Gynecology
PROC: 10H07YZ Insertion of Other Device into Products of Conception, Via Natural or Artificial Opening (ICD-10-PCS; 2018-06-11)
PROC: 10D00Z1 Extraction of Products of Conception, Low, Open Approach (ICD-10-PCS; principal; 2018-06-12)
DX: O99.824 Streptococcus B carrier state complicating childbirth (principal); O41.1230 Chorioamnionitis, third trimester, not applicable or unspecified; A41.9 Sepsis, unspecified organism; O76 Abnormality in fetal heart rate and rhythm complicating labor and delivery; Z3A.38 38 weeks gestation of pregnancy; Z37.0 Single live birth; Z88.0 Allergy status to penicillin; O77.0 Labor and delivery complicated by meconium in amniotic fluid; O62.2 Other uterine inertia; O86.19 Other infection of genital tract following delivery; O23.43 Unspecified infection of urinary tract in pregnancy, third trimester; O75.3 Other infection during labor
CPT/HCPCS: 36415; 71046; 76815; 80170; 80202; 81001; 85007; 85014; 85018; 85025; 85027; 86140; 86592; 86850; 86900; 86901; 87040; 87086; 87116; 87400; 88307; G0378; 87502; J1200; J1580; J1885; J2210; J2270; J2370; J2590; J2765; J3010; J3370; J7030; J7120